=== PATIENT | male | born 2005 ===

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

== ENCOUNTER 2024-10-22 10:54 | Outpatient (CLI) | payer OTHER ==
[~2024-10-22 10:54] MED LIST: CARAFATE1 GM/10 ML PO; CULTURELLE KID1 EAC1 PO; PEPCID20 MG PO
== END 2024-10-22 11:00 | disposition home or self-care (01) ==
LOC: SONOGRAMA 10:54
PROVIDERS: ATTEND Pediatrics
DX: R10.12 Left upper quadrant pain (principal)